=== PATIENT | female | born 1940 | race Caucasian/White ===

== ENCOUNTER → 2020-01-17 | Outpatient (CLI) | payer MEDICARE ==
[~2020-01-17] MED LIST: ALLOPURINOL 10100 M2 PO; ASA81BEC PO; ATORVASTATIN CA40 MG PO; BENTYL10 MG PO; FIBER THERAPY625 MG PO; FOLIC ACID1 MG PO; HYDROCODONE-APA1 TA1 PO; LEVOXYL75 MCG PO; MULTIPLE VITAM1 EACH PO; NEURONTIN 300300 M1 PO; PHENERGAN 25 MG25 M1 PO; REQUIP2 MG PO; RESTORIL15 MG PO; TOPROL XL100 MG PO; VITAMIN B-122000 MC1 PO; VITAMIN D1000 UNI1 PO; ZOLOFT50 MG PO
== END ==
LOC: M.RAD 12:53
PROVIDERS: ATTEND Family Medicine
DX: M81.0 Age-related osteoporosis without current pathological fracture (principal); Z78.0 Asymptomatic menopausal state